=== PATIENT | male | born 1950 | race Caucasian/White ===

== ENCOUNTER 2021-11-28 08:12 | Inpatient (IN) ==
[2021-11-28] MEDS ORDERED: Lactated Ringers 1000 ml BAG 1,000 ML IV ONE ×2 (08:49→10:36)
[2021-11-28] MEDS ORDERED: Vancomycin 1,000 MG in NS 0.9% 250 ml 250 ML IVPB ONE (08:49)
[2021-11-28] MEDS ORDERED: Piperacillin/Tazobac ADVAN 3.375 GM in NS 0.9% 100 ml BAG 100 ML IV ONE (08:49)
[2021-11-28 09:04] LABS: ABS Eosinophils 0.5 10^3/ul (0-0.6); ABS Lymphocytes 0.8 10^3/ul (1.0-4.8); ABS Monocytes 0.4 10^3/ul (0-0.8); ABS Neutrophils 8.1 10^3/ul (1.5-7.7); Eosinophil % 5.5 %; Hematocrit 32 % (42-52); Hemoglobin 10.5 g/dL (14.0-18.0); Lymphocyte % 7.8 %; Mean Corpuscular HGB Conc 33 g/dL (31-36); Mean Corpuscular Hemoglobin 33 pg (27-31); Mean Corpuscular Volume 98 fL (80-94); Mean Platelet Volume 6.4 fL (7.4-10.4); Nucleated Red Blood Cells % 0.1; Platelet Count 392 10^3/uL (150-450); Red Blood Count 3.21 10^6 /uL (4.18-5.48); Red Cell Distribution Width 19 % (10-15); White Blood Count 9.8 10^3/uL (3.5-10.8)
[2021-11-28 09:28] LABS: Activated Partial Thrombo Time 35.1 seconds (26.0-38.0); INR 1.05 (0.89-1.11)
[2021-11-28 09:29] LABS: High Sens Troponin Baseline 15 pg/mL (<20)
[2021-11-28 09:38] LABS: Urine Appearance Clear; Urine Bilirubin Negative (Negative); Urine Blood 1+ (Small) (Negative); Urine Color Straw; Urine Glucose Negative (Negative); Urine Ketones Negative (Negative); Urine Nitrite Negative (Negative); Urine Protein Negative (Negative); Urine Specific Gravity 1.015 (1.005-1.030); Urine Urobilinogen 0.2 (Negative) (Negative)
[2021-11-28 09:45] LABS: ALT 16 U/L (7-52); AST 28 U/L (13-39); Albumin 4.1 g/dL (3.2-5.2); Albumin/Globulin Ratio 1.9 (1-3); Alkaline Phosphatase 92 U/L (35-149); Anion Gap 9 mmol/L (2-11); Blood Urea Nitrogen 16 mg/dL (6-24); C Reactive Protein 62.08 mg/L (<8.01); CO2 Carbon Dioxide 26 mmol/L (22-32); Calcium 8.7 mg/dL (8.6-10.3); Chloride 97 mmol/L (101-111); Creatine Kinase 106 U/L (10-223); Globulin 2.2 g/dL (2-4); Glucose 96 mg/dL (70-100); Sodium 132 mmol/L (135-145); Total Protein 6.3 g/dL (6.4-8.9); eGFR CKD-EPI 92.8 (>60)
[2021-11-28 09:49] LABS: Urine Bacteria Absent (Absent); Urine Red Blood Cell 1+(3-5/hpf) (Absent); Urine Squamous Epithelial Cell Present (Absent); Urine White Blood Cell Trace(0-5/hpf) (Absent)
[2021-11-28 10:26] LABS: High Sensitivity Troponin 1 Hr 6 pg/mL (<20)
[2021-11-28] MEDS ORDERED: fentaNYL 100 mcg/2 ml 50 MCG/ML VIAL IV SLOW PU ONE (12:06)
[2021-11-28] MEDS ORDERED: Gadoteridol (CONTRAST) 279.3 MG/ML 10 ML IV ONE (13:29)
[2021-11-28] MEDS ORDERED: Iohexol 350 (CONTRAST) 500 ML MDV IV ONE (14:33)
[2021-11-28] MEDS ORDERED: Morphine 4 MG/ML VIAL (1 ml) IV ONE (17:47)
[2021-11-28] MEDS ORDERED: Vancomycin 1,000 MG - ED ONCE IVPB ONE (23:00)
[2021-11-28] MEDS ORDERED: ZOSYN 3.375 GM x ONE DOSE over 30 miuntes IV (23:00)
[2021-11-29] MEDS ORDERED: Thiamine 100 MG/ML 2 ml VIAL (200 mg) IM ONE (02:51)
[2021-11-29 03:42] LABS: Total Iron Binding Capacity 267 mcg/dL (250-450); Transferrin 191 mg/dL (203-362)
[2021-11-29] MEDS ORDERED: Vancomycin per Pharmacy 1 EA NOTE FOLLOW UP PRN (03:47)
[2021-11-29 03:52] LABS: % Iron Saturation 7 % (15-55); Iron < 20 ug/dL (50-212); Unsaturated Iron Binding 247 ug/dL
[2021-11-29] MEDS ORDERED: Vancomycin 1,000 MG in NS 0.9% 250 ml 250 ML IVPB SCH (04:00)
[2021-11-29 04:05] LABS: Ferritin 564.9 ng/mL (24-336)
[2021-11-29 04:08] LABS: Folate > 20.00 ng/mL (5.90-24.80)
[2021-11-29 04:09] LABS: Vitamin B12 549 pg/mL (180-914)
[2021-11-29] MEDS ORDERED: Enoxaparin 40 MG/0.4 ML SYR SUBCUT SCH (06:00)
[2021-11-29 07:06] LABS: ABS Eosinophils 0.5 10^3/ul (0-0.6); ABS Monocytes 0.4 10^3/ul (0-0.8); ABS Neutrophils 7.8 10^3/ul (1.5-7.7); Eosinophil % 5.4 %; Hematocrit 24 % (42-52); Hemoglobin 7.9 g/dL (14.0-18.0); Lymphocyte % 9.8 %; Mean Corpuscular HGB Conc 34 g/dL (31-36); Mean Corpuscular Hemoglobin 34 pg (27-31); Mean Corpuscular Volume 101 fL (80-94); Mean Platelet Volume 6.5 fL (7.4-10.4); Platelet Count 316 10^3/uL (150-450); Red Blood Count 2.35 10^6 /uL (4.18-5.48); Red Cell Distribution Width 18 % (10-15); White Blood Count 9.8 10^3/uL (3.5-10.8)
[2021-11-29 07:41] LABS: Blood Urea Nitrogen 11 mg/dL (6-24); CO2 Carbon Dioxide 20 mmol/L (22-32); Calcium 7.4 mg/dL (8.6-10.3); Chloride 107 mmol/L (101-111); Glucose 91 mg/dL (70-100); Sodium 137 mmol/L (135-145); eGFR CKD-EPI 102.4 (>60)
[2021-11-29 07:46] LABS: Anion Gap 10 mmol/L (2-11)
[2021-11-29] MEDS ORDERED: Cefepime 1 GM in Dextrose 1 GM/50 ML BAG IV SCH (09:00)
[2021-11-29] MEDS ORDERED: Cefepime ADVAN 1 GM in NS 0.9% 50 ML 50 ML IVPB SCH (09:00)
[2021-11-29] MEDS: Multivitamins/Minerals TAB PO SCH (10:10)
[2021-11-29] MEDS ORDERED: Lactated Ringers 1000 ml BAG 1,000 ML IV ONE (10:45)
[2021-11-29] MEDS ORDERED: fentaNYL 100 mcg/2 ml 50 MCG/ML VIAL ONE (12:06)
[2021-11-29 13:23] LABS: Body Fluid Appearance Bloody; Body Fluid Color Pink
[2021-11-29 13:54] LABS: Body Fluid WBC 444 /mcL
[2021-11-29] MEDS ORDERED: Meropenem 2 GM in NS 0.9% 100 ml BAG 100 ML IVPB SCH (14:00)
[2021-11-29 14:57] LABS: Body Fluid Mono 19 %; Body Fluid Total Cells Counted 200
[2021-11-29] MEDS: Vancomycin 1000 MG in NS 0.9% 250 ML IVPB SCH (17:04)
[2021-11-29] MEDS: Piperacillin/Tazobac ADVAN 3.375 GM in NS 0.9% 100 ml BAG 100 ML IV SCH (22:16)
[2021-11-29 23:31] LABS: ABS Basophils 0.1 10^3/ul (0-0.2); ABS Eosinophils 0.8 10^3/ul (0-0.6); ABS Lymphocytes 1.5 10^3/ul (1.0-4.8); ABS Monocytes 0.4 10^3/ul (0-0.8); ABS Neutrophils 5.3 10^3/ul (1.5-7.7); Eosinophil % 10.1 %; Hematocrit 25 % (42-52); Hemoglobin 8.1 g/dL (14.0-18.0); Lymphocyte % 18.5 %; Mean Corpuscular HGB Conc 32 g/dL (31-36); Mean Corpuscular Hemoglobin 32 pg (27-31); Mean Corpuscular Volume 99 fL (80-94); Mean Platelet Volume 6.2 fL (7.4-10.4); Platelet Count 339 10^3/uL (150-450); Red Blood Count 2.52 10^6 /uL (4.18-5.48); Red Cell Distribution Width 18 % (10-15); White Blood Count 8.1 10^3/uL (3.5-10.8)
[2021-11-30 00:23] LABS: Potassium 3.8 mmol/L (3.5-5.0); eGFR CKD-EPI 96.9 (>60)
[2021-11-30] MEDS: Heparin 5000 UNITS/ML 1 mL VIAL SUBCUT SCH ×3 (06:06→22:00)
[2021-11-30] MEDS: Piperacillin/Tazobac ADVAN 3.375 GM in NS 0.9% 100 ml BAG 100 ML IV SCH ×3 (06:06→14:03)
[2021-11-30] MEDS: Vancomycin 1000 MG in NS 0.9% 250 ML IVPB SCH ×3 (06:07→19:58)
[2021-11-30 08:59] LABS: ABS Basophils 0.1 10^3/ul (0-0.2); ABS Lymphocytes 1.5 10^3/ul (1.0-4.8); ABS Monocytes 0.4 10^3/ul (0-0.8); ABS Neutrophils 4.6 10^3/ul (1.5-7.7); Eosinophil % 13.1 %; Hematocrit 28 % (42-52); Hemoglobin 8.9 g/dL (14.0-18.0); Lymphocyte % 20.1 %; Mean Corpuscular HGB Conc 33 g/dL (31-36); Mean Corpuscular Hemoglobin 32 pg (27-31); Mean Corpuscular Volume 100 fL (80-94); Mean Platelet Volume 6.6 fL (7.4-10.4); Nucleated Red Blood Cells % 0.1; Platelet Count 370 10^3/uL (150-450); Red Blood Count 2.76 10^6 /uL (4.18-5.48); Red Cell Distribution Width 18 % (10-15); White Blood Count 7.5 10^3/uL (3.5-10.8)
[2021-11-30 09:10] LABS: C Reactive Protein 91.9 mg/L (<8.01); Calcium 8.2 mg/dL (8.6-10.3); Potassium 3.8 mmol/L (3.5-5.0); eGFR CKD-EPI 93.8 (>60)
[2021-11-30] MEDS: Multivitamins/Minerals TAB PO SCH (09:41)
[2021-11-30] MEDS ORDERED: Vancomycin Trough Check NOTE FOLLOW UP ONE (16:30)
[2021-11-30 18:19] LABS: Vancomycin Trough 11.3 mcg/mL; eGFR CKD-EPI 96.5 (>60)
[2021-11-30] MEDS: Meropenem 1 GM PREMIX(*) 1 GM/50 ML BAG IV SCH (21:42)
[2021-12-01] MEDS: Vancomycin 1000 MG in NS 0.9% 250 ML IVPB SCH ×2 (00:46→04:15)
[2021-12-01] MEDS: Heparin 5000 UNITS/ML 1 mL VIAL SUBCUT SCH ×3 (06:00→20:26)
[2021-12-01] MEDS: Meropenem 1 GM PREMIX(*) 1 GM/50 ML BAG IV SCH ×3 (06:25→22:28)
[2021-12-01 07:07] LABS: ABS Basophils 0.1 10^3/ul (0-0.2); ABS Eosinophils 1.3 10^3/ul (0-0.6); ABS Lymphocytes 1.7 10^3/ul (1.0-4.8); ABS Monocytes 0.4 10^3/ul (0-0.8); Eosinophil % 20.3 %; Hematocrit 26 % (42-52); Hemoglobin 8.6 g/dL (14.0-18.0); Lymphocyte % 26.6 %; Mean Corpuscular HGB Conc 33 g/dL (31-36); Mean Corpuscular Hemoglobin 33 pg (27-31); Mean Corpuscular Volume 100 fL (80-94); Mean Platelet Volume 6.6 fL (7.4-10.4); Platelet Count 380 10^3/uL (150-450); Red Blood Count 2.59 10^6 /uL (4.18-5.48); Red Cell Distribution Width 18 % (10-15); White Blood Count 6.4 10^3/uL (3.5-10.8)
[2021-12-01 07:09] LABS: Calcium 8.3 mg/dL (8.6-10.3); Potassium 3.8 mmol/L (3.5-5.0); eGFR CKD-EPI 95.7 (>60)
[2021-12-01] MEDS: Multivitamins/Minerals TAB PO SCH (09:47)
[2021-12-02] MEDS: Heparin 5000 UNITS/ML 1 mL VIAL SUBCUT SCH ×3 (06:16→22:16)
[2021-12-02] MEDS: Meropenem 1 GM PREMIX(*) 1 GM/50 ML BAG IV SCH ×3 (06:16→22:15)
[2021-12-02 06:43] LABS: ABS Eosinophils 1.6 10^3/ul (0-0.6); ABS Lymphocytes 1.6 10^3/ul (1.0-4.8); ABS Monocytes 0.4 10^3/ul (0-0.8); ABS Neutrophils 2.4 10^3/ul (1.5-7.7); Eosinophil % 26.7 %; Hematocrit 27 % (42-52); Hemoglobin 8.9 g/dL (14.0-18.0); Lymphocyte % 26.2 %; Mean Corpuscular HGB Conc 33 g/dL (31-36); Mean Corpuscular Hemoglobin 32 pg (27-31); Mean Corpuscular Volume 98 fL (80-94); Mean Platelet Volume 6.1 fL (7.4-10.4); Nucleated Red Blood Cells % 0.1; Platelet Count 415 10^3/uL (150-450); Red Blood Count 2.74 10^6 /uL (4.18-5.48); Red Cell Distribution Width 18 % (10-15); White Blood Count 5.9 10^3/uL (3.5-10.8)
[2021-12-02 07:25] LABS: Calcium 8.5 mg/dL (8.6-10.3); Potassium 4.1 mmol/L (3.5-5.0); eGFR CKD-EPI 94.9 (>60)
[2021-12-02] MEDS: Calamine LOTION BTL TOPICAL SCH ×5 (10:13→19:43)
[2021-12-02] MEDS: Multivitamins/Minerals TAB PO SCH (10:14)
[2021-12-03] MEDS: Meropenem 1 GM PREMIX(*) 1 GM/50 ML BAG IV SCH ×3 (05:50→21:24)
[2021-12-03] MEDS: Heparin 5000 UNITS/ML 1 mL VIAL SUBCUT SCH ×3 (05:50→21:23)
[2021-12-03 05:58] LABS: Hematocrit 30 % (42-52); Hemoglobin 10.1 g/dL (14.0-18.0); Mean Corpuscular HGB Conc 34 g/dL (31-36); Mean Corpuscular Hemoglobin 34 pg (27-31); Mean Corpuscular Volume 99 fL (80-94); Mean Platelet Volume 6.3 fL (7.4-10.4); Platelet Count 408 10^3/uL (150-450); Red Blood Count 2.97 10^6 /uL (4.18-5.48); Red Cell Distribution Width 18 % (10-15)
[2021-12-03 06:15] LABS: ABS Basophils 0.1 10^3/ul (0-0.2); ABS Eosinophils 1.7 10^3/ul (0-0.6); ABS Lymphocytes 1.8 10^3/ul (1.0-4.8); ABS Monocytes 0.3 10^3/ul (0-0.8); ABS Neutrophils 2.2 10^3/ul (1.5-7.7); Eosinophil % 27.8 %
[2021-12-03 06:31] LABS: C Reactive Protein 16.5 mg/L (<8.01); Calcium 8.8 mg/dL (8.6-10.3); Potassium 4.3 mmol/L (3.5-5.0); eGFR CKD-EPI 93.1 (>60)
[2021-12-03] MEDS: Multivitamins/Minerals TAB PO SCH (08:56)
[2021-12-03] MEDS: Calamine LOTION BTL TOPICAL SCH ×3 (08:57→21:24)
[2021-12-03 23:45] LABS: Anaplasma phagocytophilum Negative (Negative); B. miyamotoi PCR, B Negative (Negative); Babesia divergens/MO-1 Negative (Negative); Babesia ducani Negative (Negative); Ehrlichia chaffeensis Negative (Negative); Ehrlichia ewingii/canis Negative (Negative); Ehrlichia muris eauclairensis Negative (Negative)
[2021-12-04] MEDS: Heparin 5000 UNITS/ML 1 mL VIAL SUBCUT SCH ×3 (06:19→21:34)
[2021-12-04] MEDS: Meropenem 1 GM PREMIX(*) 1 GM/50 ML BAG IV SCH (06:19)
[2021-12-04 06:42] LABS: Hematocrit 29 % (42-52); Hemoglobin 9.4 g/dL (14.0-18.0); Mean Corpuscular HGB Conc 33 g/dL (31-36); Mean Corpuscular Hemoglobin 33 pg (27-31); Mean Corpuscular Volume 100 fL (80-94); Mean Platelet Volume 6.3 fL (7.4-10.4); Platelet Count 412 10^3/uL (150-450); Red Blood Count 2.86 10^6 /uL (4.18-5.48); Red Cell Distribution Width 18 % (10-15); White Blood Count 7.7 10^3/uL (3.5-10.8)
[2021-12-04 07:02] LABS: ABS Basophils 0.1 10^3/ul (0-0.2); ABS Eosinophils 1.8 10^3/ul (0-0.6); ABS Lymphocytes 2.4 10^3/ul (1.0-4.8); ABS Monocytes 0.4 10^3/ul (0-0.8); ABS Neutrophils 3.1 10^3/ul (1.5-7.7); Eosinophil % 23.2 %; Lymphocyte % 30.5 %
[2021-12-04 07:29] LABS: Calcium 8.5 mg/dL (8.6-10.3); Magnesium 2.1 mg/dL (1.9-2.7); Potassium 4.5 mmol/L (3.5-5.0); eGFR CKD-EPI 92.1 (>60)
[2021-12-04] MEDS: Multivitamins/Minerals TAB PO SCH (08:53)
[2021-12-04] MEDS: Calamine LOTION BTL TOPICAL SCH ×3 (10:39→21:32)
[2021-12-04] MEDS ORDERED: Vancomycin per Pharmacy 1 EA NOTE FOLLOW UP PRN (14:14)
[2021-12-04] MEDS ORDERED: Vancomycin 1,250 MG in NS 0.9% 250 ml 250 ML IVPB ONE (14:30)
[2021-12-04 20:50] LABS: Urine Appearance Clear; Urine Color Colorless
[2021-12-04 20:51] LABS: Urine Bilirubin Negative (Negative); Urine Blood Negative (Negative); Urine Glucose Negative (Negative); Urine Ketones Negative (Negative); Urine Nitrite Negative (Negative); Urine Protein Negative (Negative); Urine Specific Gravity 1.015 (1.005-1.030); Urine Urobilinogen 0.2 (Negative) (Negative); Urine pH 7.5 (5.0-9.0)
[2021-12-05] MEDS: Vancomycin 1,250 MG in NS 0.9% 250 ml 250 ML IVPB SCH ×2 (02:23→14:04)
[2021-12-05 05:07] LABS: ABS Basophils 0.1 10^3/ul (0-0.2); ABS Eosinophils 1.6 10^3/ul (0-0.6); ABS Lymphocytes 2.5 10^3/ul (1.0-4.8); ABS Monocytes 0.4 10^3/ul (0-0.8); ABS Neutrophils 3.6 10^3/ul (1.5-7.7); Eosinophil % 19.7 %; Hematocrit 31 % (42-52); Hemoglobin 10.4 g/dL (14.0-18.0); Lymphocyte % 30.8 %; Mean Corpuscular HGB Conc 34 g/dL (31-36); Mean Corpuscular Hemoglobin 34 pg (27-31); Mean Corpuscular Volume 100 fL (80-94); Mean Platelet Volume 6.2 fL (7.4-10.4); Platelet Count 435 10^3/uL (150-450); Red Blood Count 3.05 10^6 /uL (4.18-5.48); Red Cell Distribution Width 18 % (10-15); White Blood Count 8.1 10^3/uL (3.5-10.8)
[2021-12-05 05:53] LABS: Potassium 4.4 mmol/L (3.5-5.0); eGFR CKD-EPI 92.1 (>60)
[2021-12-05] MEDS: Heparin 5000 UNITS/ML 1 mL VIAL SUBCUT SCH ×3 (05:56→21:46)
[2021-12-05] MEDS: Calamine LOTION BTL TOPICAL SCH ×3 (09:46→21:47)
[2021-12-05] MEDS: Multivitamins/Minerals TAB PO SCH (09:47)
[2021-12-05] MEDS ORDERED: Calcium Carb (TUMS) 500 mg CHEW TAB PO ONE (20:53)
[2021-12-06] MEDS: Vancomycin 1,250 MG in NS 0.9% 250 ml 250 ML IVPB SCH (03:29)
[2021-12-06] MEDS: Heparin 5000 UNITS/ML 1 mL VIAL SUBCUT SCH ×3 (05:18→20:10)
[2021-12-06 05:43] LABS: ABS Basophils 0.1 10^3/ul (0-0.2); ABS Eosinophils 1.6 10^3/ul (0-0.6); ABS Lymphocytes 2.6 10^3/ul (1.0-4.8); ABS Monocytes 0.4 10^3/ul (0-0.8); ABS Neutrophils 3.6 10^3/ul (1.5-7.7); Eosinophil % 19.1 %; Hematocrit 29 % (42-52); Hemoglobin 9.8 g/dL (14.0-18.0); Lymphocyte % 31.7 %; Mean Corpuscular HGB Conc 34 g/dL (31-36); Mean Corpuscular Hemoglobin 34 pg (27-31); Mean Corpuscular Volume 99 fL (80-94); Mean Platelet Volume 6.2 fL (7.4-10.4); Platelet Count 431 10^3/uL (150-450); Red Blood Count 2.92 10^6 /uL (4.18-5.48); Red Cell Distribution Width 18 % (10-15); White Blood Count 8.3 10^3/uL (3.5-10.8)
[2021-12-06 06:05] LABS: Potassium 4.4 mmol/L (3.5-5.0)
[2021-12-06 07:14] LABS: C Reactive Protein 8.35 mg/L (<8.01); Calcium 8.8 mg/dL (8.6-10.3); eGFR CKD-EPI 94.9 (>60)
[2021-12-06] MEDS: Calamine LOTION BTL TOPICAL SCH ×3 (08:13→20:09)
[2021-12-06] MEDS: Multivitamins/Minerals TAB PO SCH (08:13)
[2021-12-06] MEDS ORDERED: DAPTOMYCIN IVPB SCH (10:00)
[2021-12-06] MEDS ORDERED: NS 0.9% IVPB SCH (10:00)
[2021-12-06] MEDS: DAPTOmycin SDV 500 MG in NS 0.9% 50 ML 50 ML IVPB SCH (11:25)
[2021-12-06] MEDS ORDERED: Polyethylene Glycol 3350 17 GM PACKET PO PRN (12:54)
[2021-12-06] MEDS ORDERED: Magnesium Hydroxide LIQ 30 ML UDC PO PRN (12:54)
[2021-12-06] MEDS ORDERED: Senna TAB 8.6 mg TAB PO PRN (12:54)
[2021-12-06] MEDS ORDERED: Vancomycin Trough Check NOTE FOLLOW UP ONE (14:00)
[2021-12-06 14:48] LABS: Vancomycin Trough 16.6 mcg/mL
[2021-12-06] MEDS: Calcium Carb (TUMS) 500 mg CHEW TAB PO PRN ×2 (15:33→20:07)
[2021-12-07] MEDS: Heparin 5000 UNITS/ML 1 mL VIAL SUBCUT SCH (04:53)
[2021-12-07 05:23] LABS: ABS Basophils 0.1 10^3/ul (0-0.2); ABS Eosinophils 0.8 10^3/ul (0-0.6); ABS Lymphocytes 2.8 10^3/ul (1.0-4.8); ABS Monocytes 0.5 10^3/ul (0-0.8); ABS Neutrophils 6.3 10^3/ul (1.5-7.7); Eosinophil % 7.7 %; Hematocrit 32 % (42-52); Hemoglobin 10.3 g/dL (14.0-18.0); Lymphocyte % 26.6 %; Mean Corpuscular HGB Conc 32 g/dL (31-36); Mean Corpuscular Hemoglobin 32 pg (27-31); Mean Corpuscular Volume 99 fL (80-94); Mean Platelet Volume 6.1 fL (7.4-10.4); Platelet Count 471 10^3/uL (150-450); Red Blood Count 3.23 10^6 /uL (4.18-5.48); Red Cell Distribution Width 18 % (10-15); White Blood Count 10.5 10^3/uL (3.5-10.8)
[2021-12-07 06:06] LABS: Potassium 4.5 mmol/L (3.5-5.0)
[2021-12-07 06:07] LABS: Calcium 9.4 mg/dL (8.6-10.3); Magnesium 2.1 mg/dL (1.9-2.7); eGFR CKD-EPI 91.4 (>60)
[2021-12-07] MEDS: Multivitamins/Minerals TAB PO SCH (08:23)
[2021-12-07] MEDS: Calamine LOTION BTL TOPICAL SCH (08:24)
[2021-12-07] MEDS: DAPTOmycin SDV 500 MG in NS 0.9% 50 ML 50 ML IVPB SCH (10:16)
[2021-12-07 11:28] VITALS: BP 102/54
== END 2021-12-07 12:55 | disposition home or self-care (01) | DRG 862 ==
LOC: ED 08:12 → SUATTDRO 11-29 00:09 → EDHOLD 11-29 00:09 → MED 11-29 23:05
PROVIDERS: ADMIT Internal Medicine; ATTEND Internal Medicine